=== PATIENT | male | born 1990 | race Caucasian/White ===

== ENCOUNTER 2019-03-20 16:09 | Emergency (ER) | payer OTHER, SELFPAY ==
[2019-03-20 16:12] VITALS: BP 150/81; PULSE 70; RESP 16; TEMP 36.5; O2SAT 99; BMI 25.3
--- NOTE | 2019-03-20 16:20 | XR_ITS ---
WS: [id number] PORTABLE CHEST HISTORY: chest pain COMPARISON: None available. Lungs are clear and well expanded. No pleural effusion or pneumothorax. Cardiac size: Normal. Mediastinum/Aorta: Normal mediastinum. No osseous abnormality seen. XR/XR chest 1V portable [id number] IMPRESSION: Unremarkable portable chest.
--- NOTE | 2019-03-20 16:20 | ECG_ITS ---
Measurements Intervals [place] Rate: 76 P: 6 VT: 92 QRS: 57 QRSD: 102 T: 78 QT: 381 QTc: 429 SINUS RHYTHM WITH SINUS ARRHYTHMIA WITH SHORT VT INTERVAL No previous ECG available for comparison Electronically Signed On 03-21-2019 18:32:19 NATURAL RESOURCE MANAGER by Heena Jean Baptiste M.D. [email or web address]
[2019-03-20 17:31] LABS: Basophils % 0.7 %; Eosinophils # 0.2 10^3/uL (0.0-0.8); Eosinophils % 2.8 %; Hematocrit 44.6 % (42.0-52.0); Hemoglobin 14.9 g/dL (11.7-16.6); Lymphocytes # 1.5 10^3/uL (0.8-4.8); Lymphocytes % 25.7 %; Mean Corpuscular HGB Conc 33.4 g/dL (30.0-36.0); Mean Corpuscular Hemoglobin 28.4 pg (28.0-34.0); Mean Corpuscular Volume 85.1 fL (80-94); Mean Platelet Volume 10.1 fL (7.4-10.4); Monocytes # 0.4 10^3/uL (0.2-0.9); Monocytes % 6.8 %; Neutrophils # 3.8 10^3/uL (1.8-7.7); Neutrophils % 63.8 %; Nucleated Red Blood Cells % 0 %; Platelet Count 263 10^3/cmm (130-400); Red Blood Count 5.24 10^6/uL (4.1-5.3); Red Cell Distribution Width 12.4 % (12.1-15.1)
[2019-03-20 17:39] LABS: INR 0.93 (0.8-1.2)
[2019-03-20 17:40] LABS: Partial Thromboplastin Time 29.1 SECONDS (23.9-36.7)
[2019-03-20 17:47] LABS: Troponin(5th) Baseline 8 ng/mL (0-15)
[2019-03-20 17:55] LABS: Alanine Aminotransferase 22 U/L (0-41); Albumin Level 5.1 g/dL (3.5-5.2); Alkaline Phosphatase 75 IU/L (40-130); Anion Gap 17.7 (5-19); Aspartate Amino Transferase 25 U/L (0-40); Blood Urea Nitrogen 16 mg/dL (6-20); Calcium 10.3 mg/dL (8.5-10.5); Carbon Dioxide 28 mmol/L (22-29); Chloride 98 mmol/L (98-107); Globulin 2.4 g/dL (1.3-4.6); Glomerular Filtration Rate 114.3 mL/min (90-130); Glucose 96 mg/dL (74-109); Lipase 55 U/L (13-60); NT Pro B Type Natriuretic Pept 7 pg/mL (0-125); Potassium 3.7 mmol/L (3.5-5.1); Sodium 140 mmol/L (136-145); Total Bilirubin 0.3 mg/dL (0.15-1.2); Total Protein 7.5 g/dL (6.6-8.7)
--- NOTE | 2019-03-20 18:15 | ED_ITS ---
Entered by Acacia Sarmiento, acting as scribe for Katerin Rodriguez MD Mar 20, 2019 16:09 HPI - Chest Pain General: Chief Complaint: Chest Pain Stated Complaint: Chest pains Time Seen by Provider: 03/20/19 18:14 Source: patient Mode of arrival: ambulatory Limitations: no limitations History of Present Illness: HPI narrative: 29 yo Male presents to ED with complaint of chest pain. Pt states that he started having pain under his right ribs yesterday. Pt states that he went to Urgent Care and they told him that they couldn't do any chest xrays and that he needed to come get an EKG done. Pt states that he has also had some abdominal pains which come and go. Pt states that he had some acid reflux pains last night and took some Pepto-Bismol last night and that pain went away but it was a different pain. Pt states that he had some chest pains a few months ago and went to the [facility] to be seen. Pt states that after waiting in the waiting room for 3 hours he decided to go home. Pt states that he is supposed to see a field hauler to get a follow up echocardiogram and stress test. complaint: chest pain Onset (ago): day(s) Timing of current episode: episodic and still present Prior episodes: Yes Onset: during rest Pain location: right chest Pain radiation: abdomen Pain scale (0-10): 4 Relieving factors: nothing Exacerbating factors: nothing Associated symptoms: Reports abdominal pain; Deny dyspnea or fever(s) Treatment prior to arrival: none Review of Systems Const: Denies: fever, chills, body aches or change in appetite Eyes: Denies: blurry vision or eye discomfort ENMT: Denies: throat pain or dental pain Card: Reports: chest pain Resp: Denies: shortness of breath GI: Reports: abdominal pain : Denies: painful urination Musc: Denies: neck pain or back pain Skin/Breast: Denies: rash Neuro: Denies: headache Psych: Denies: depression Vic/Lymph: Denies: easy bruising All/Imm: Denies: hives PFSH ED PFSH: Statuses (acute, chronic, etc) shown below reflect problem list status as previously entered and may not be historically accurate Social History Smoking and tobacco status: current some day smoker Physical Exam Const: COMMON NORMALS: no apparent distress, oriented x3 and healthy appearing HENMT: COMMON NORMALS: normocephalic and head/scalp atraumatic HEAD & SCALP: normocephalic and atraumatic Eye: COMMON NORMALS: PERRL and EOMs intact bilaterally PUPIL: Yes PERRL Neck/C-Spine: COMMON NORMALS: full ROM and supple Chest: COMMONS NORMALS: inspection of chest normal and palpation of chest normal Resp: COMMON NORMALS: normal respiratory effort, no retractions, no use of accessory muscles and clear to auscultation bilaterally AUSCULTATION: clear to auscultation bilaterally Cardio: COMMON NORMALS: regular rate, regular rhythm and no murmurs RATE: regular rate RHYTHM: regular rhythm GI: COMMON NORMALS: normal to inspection, nondistended, normoactive bowel sounds, soft to palpation, non-tender and no masses PALPATION: Yes soft Extremity: COMMON NORMALS: normal to inspection and full ROM Neuro: COMMON NORMALS: oriented x3, moves all extremities and no focal motor deficits Psych: COMMON NORMALS: mental status grossly normal, thought process normal and cooperative THOUGHT PROCESS: normal thought process Skin: COMMON NORMALS: no rashes or lesions noted and no wounds GENERAL SKIN EXAM: no rashes or lesions noted Course Vital Signs: Vital signs: Vital Signs Temperature 97.7 F 03/20/19 16:12 Pulse Rate 72 03/20/19 18:22 Respiratory Rate 16 03/20/19 18:22 Blood Pressure 116/61 03/20/19 18:22 Pulse Oximetry 100 03/20/19 18:22 MDM - Chest Pain MDM Narrative: Medical decision making narrative: Patient presents here with chest pain that is atypical in nature. Patient is well-appearing here and is young and healthy. He has no signs of pulmonary embolism or cardiac disease. Troponin and EKG is normal. He is stable for discharge is to follow-up with his primary care doctor soon as possible. He is return if worsening. Lab Data: Labs: Lab Results 03/20/19 03/20/19 03/20/19 Range/Units 16:30 16:30 16:30 WBC 6.0 (4.0-10.0) 10^3/ uL RBC 5.24 (4.1-5.3) 10^6/u L Hgb 14.9 (11.7-16.6) g/dL Hct 44.6 (42.0-52.0) % MCV 85.1 (80-94) fL MCH 28.4 (28.0-34.0) pg MCHC 33.4 (30.0-36.0) g/dL RDW 12.4 (12.1-15.1) % Plt Count 263 (130-400) 10^3/c mm MPV 10.1 (7.4-10.4) fL Neut % (Auto) 63.8 % Lymph % (Auto) 25.7 % [place] % (Auto) 6.8 % Eos % (Auto) 2.8 % Baso % (Auto) 0.7 % Neut # (Auto) 3.8 (1.8-7.7) 10^3/u L Lymph # (Auto) 1.5 (0.8-4.8) 10^3/u L [place] # (Auto) 0.4 (0.2-0.9) 10^3/u L Eos # (Auto) 0.2 (0.0-0.8) 10^3/u L Baso # (Auto) 0.0 (0.0-0.1) 10^3/u L Nucleated RBC % (a uto) 0 % Nucleated RBCs # 0.0 /100WBC PT 12.70 (10.5-13.3) SECO NDS INR 0.93 (0.8-1.2) APTT 29.1 (23.9-36.7) SECO NDS Sodium 140 (136-145) mmol/L Potassium 3.7 (3.5-5.1) mmol/L Chloride 98 (98-107) mmol/L Carbon Dioxide 28 (22-29) mmol/L Anion Gap 17.7 (5-19) BUN 16 (6-20) mg/dL Creatinine 0.8 (0.7-1.2) mg/dL GFR Calculation 114.3 (90-130) mL/min Glucose 96 (74-109) mg/dL Calcium 10.3 (8.5-10.5) mg/dL Total Bilirubin 0.3 (0.15-1.2) mg/dL AST 25 (0-40) U/L ALT 22 (0-41) U/L Alkaline Phosphata se 75 (40-130) IU/L Troponin T Baselin e (0-15) ng/mL NT-Pro-B Natriuret Pep 7 (0-125) pg/mL Total Protein 7.5 (6.6-8.7) g/dL Albumin 5.1 (3.5-5.2) g/dL Globulin 2.4 (1.3-4.6) g/dL Lipase 55 (13-60) U/L 03/20/19 Range/Units 16:30 WBC (4.0-10.0) 10^3/ uL RBC (4.1-5.3) 10^6/u L Hgb (11.7-16.6) g/dL Hct (42.0-52.0) % MCV (80-94) fL MCH (28.0-34.0) pg MCHC (30.0-36.0) g/dL RDW (12.1-15.1) % Plt Count (130-400) 10^3/c mm MPV (7.4-10.4) fL Neut % (Auto) % Lymph % (Auto) % [place] % (Auto) % Eos % (Auto) % Baso % (Auto) % Neut # (Auto) (1.8-7.7) 10^3/u L Lymph # (Auto) (0.8-4.8) 10^3/u L [place] # (Auto) (0.2-0.9) 10^3/u L Eos # (Auto) (0.0-0.8) 10^3/u L Baso # (Auto) (0.0-0.1) 10^3/u L Nucleated RBC % (a uto) % Nucleated RBCs # /100WBC PT (10.5-13.3) SECO NDS INR (0.8-1.2) APTT (23.9-36.7) SECO NDS Sodium (136-145) mmol/L Potassium (3.5-5.1) mmol/L Chloride (98-107) mmol/L Carbon Dioxide (22-29) mmol/L Anion Gap (5-19) BUN (6-20) mg/dL Creatinine (0.7-1.2) mg/dL GFR Calculation (90-130) mL/min Glucose (74-109) mg/dL Calcium (8.5-10.5) mg/dL Total Bilirubin (0.15-1.2) mg/dL AST (0-40) U/L ALT (0-41) U/L Alkaline Phosphata se (40-130) IU/L Troponin T Baselin e 8 (0-15) ng/mL NT-Pro-B Natriuret Pep (0-125) pg/mL Total Protein (6.6-8.7) g/dL Albumin (3.5-5.2) g/dL Globulin (1.3-4.6) g/dL Lipase (13-60) U/L Imaging Data^: CXR: My impression: no acute abnormality EKG Data^: EKG 1: EKG interpretation date: 03/20/19 EKG interpretation time: 16:25 Interpretation: nsr hr [address] or t wave abnormalities qrs 102 qtc 411 Discharge Plan Discharge Patient Disposition: Home, Self-Care Clinical Impression: Atypical chest pain Condition: Stable Discharge Orders: Discharge Order (Routine); Ordered 03/20/19 Ordered By: Katerin Rodriguez Discharge Diet: Advance as tolerated Discharge Activity: Resume usual activity Patient Instructions: Chest Pain (ED) Discharge Date/Time: 03/20/19 18:51 Coding Level of Care Code ED Anatomic Pathologist for Chg Fwd Exam Problem Focused The documentation recorded by the Torsten olea Carmen, accurately reflects the service I personally performed and the decisions made by Michael fajardo Korby, MD Mar 20, 2019 16:09
[2019-03-20 18:22] VITALS: BP 116/61; PULSE 72; RESP 16; O2SAT 100
[2019-03-20 18:49] VITALS: BP 118/68; PULSE 52; RESP 20; O2SAT 100
== END 2019-03-20 18:51 | disposition home or self-care (01) ==
PROVIDERS: Emergency Provider Emergency Medicine
DX: R07.89 Other chest pain (principal); F17.210 Nicotine dependence, cigarettes, uncomplicated
CPT/HCPCS: 36415; 71045; 80053; 83690; 83880; 84484; 85025; 85610; 85730; 93005; 99281; 99283